=== PATIENT | female | born 1955 | race Caucasian/White ===

== ENCOUNTER → 2022-12-08 | Outpatient (CLI) | payer MEDICARE | LOC: MAMMO 08:11 | PROVIDERS: ATTEND Family Medicine | DX: Z12.31 Encounter for screening mammogram for malignant neoplasm of breast (principal) | CPT/HCPCS: 77067 ==

== ENCOUNTER → 2023-06-11 | Outpatient (CLI) | payer MEDICARE ==
[~2023-06-11] MED LIST: IOPAMIDOL 370 MG/ML 100 ML INFUS..BTL INJ ONE
[2023-06-11 14:55] LABS: CREATININE, SERUM 0.84 mg/dL (0.57-1.11)
== END ==
LOC: CT 14:09
PROVIDERS: ATTEND Family Medicine
DX: R22.0 Localized swelling, mass and lump, head (principal)
CPT/HCPCS: 36415; 70460; 82565; 84520; Q9967

== ENCOUNTER → 2025-01-09 | Outpatient (REF) | payer MEDICARE | LOC: US 07:45 | PROVIDERS: ATTEND Family Medicine | DX: R10.9 Unspecified abdominal pain (principal) | CPT/HCPCS: 76700 ==

== ENCOUNTER → 2025-01-30 | Outpatient (REF) | payer MEDICARE ==
[2025-01-30 08:26] LABS: CREATININE, SERUM 0.81 mg/dL (0.57-1.11)
== END ==
LOC: CT 07:32
PROVIDERS: ATTEND Family Medicine
DX: R16.0 Hepatomegaly, not elsewhere classified (principal)
CPT/HCPCS: 36415; 74170; 82565; 84520; Q9967